=== PATIENT | male | born 1995 | race Hispanic/Latino ===

== ENCOUNTER 2018-12-30 21:59 | Emergency (ER) | payer SELFPAY ==
[~2018-12-30] VITALS: Ht 172.7 cm; Wt 81.6 kg
--- OUTSIDE RECORDS SUMMARY | 2018-12-30 22:02 | XMS REPORT ---
Author Author [facility] Address Unknown Phone Unavailable Care Team Providers Care Tool Rental Technician Name Role Phone Unavailable Unavailable Problems This patient has no known problems. Allergies, Adverse Reactions, Alerts This patient has no known allergies or adverse reactions. Medications This patient has no known medications. Encounters Start Date/Time End Date/Time Encounter Type Admission Type Attending Clinicians Care Facility Care Department Encounter ID 2017-12-05 00:00:00 2018-05-19 00:00:00 [facility] [id number]
[2018-12-30 23:03] VITALS: BP 123/87
== END 2018-12-30 23:08 | disposition home or self-care (01) ==
LOC: ER 21:59
DX: S30.21XA Contusion of penis, initial encounter (principal); W26.0XXA Contact with knife, initial encounter; Y92.009 Unspecified place in unspecified non-institutional (private) residence as the place of occurrence of the external cause
CPT/HCPCS: 99282; 99283